=== PATIENT | male | born 1990 | race Two or more races ===

== ENCOUNTER 2020-12-16 06:43 | Emergency (ER) | payer MEDICAID ==
[~2020-12-16] VITALS: Ht 170.2 cm; Wt 63.5 kg
[2020-12-16 06:47] VITALS: BP 124/66
--- NOTE | 2020-12-16 07:20 | NUR ---
Patient eloped from facility. ER MD notified.
== END 2020-12-16 07:21 | disposition left against medical advice (07) ==
LOC: ER 06:52
DX: Z53.21 Procedure and treatment not carried out due to patient leaving prior to being seen by health care provider (principal)